=== PATIENT | female | born 1985 | race Caucasian/White ===

== ENCOUNTER 2017-03-23 18:50 | Emergency (ER) | payer SELFPAY ==
[2017-03-23 19:44] LABS: HEMOGLOBIN 14.4 gm/dl (12.3-15.3); RED BLOOD COUNT 4.52 M/UL (4.00-5.10); WHITE BLOOD COUNT 7.1 K/UL (4.5-11.0)
[2017-03-23 20:06] LABS: BUN/CREATININE RATIO 13 (0-10)
== END 2017-03-23 21:45 | disposition home or self-care (01) ==
LOC: ER1 18:50
PROVIDERS: Family Medicine
DX: G40.409 Other generalized epilepsy and epileptic syndromes, not intractable, without status epilepticus (principal); F17.210 Nicotine dependence, cigarettes, uncomplicated
CPT/HCPCS: 36415; 80053; 85025; 96365; 96366; 99285; J1165

== ENCOUNTER 2020-12-15 00:10 | Emergency (ER) | payer BC ==
[~2020-12-15 00:10] MED LIST: KEPPRA500 MG PO; MACROBID 100 M100 MG PO; PYRIDIUM200 MG PO
[2020-12-15 01:22] LABS: HEMOGLOBIN 14.2 gm/dl (12.3-15.3); RED BLOOD COUNT 4.4 M/UL (4.00-5.10); WHITE BLOOD COUNT 10.5 K/UL (4.5-11.0)
[2020-12-15 01:39] LABS: BUN/CREATININE RATIO 9 (0-10)
[2020-12-15] MEDS ORDERED: ZOFRAN4 MG PO ×2 (02:24→02:39)
[2020-12-15] MEDS ORDERED: PROTONIX40 MG PO (02:25)
[2020-12-15] MEDS ORDERED: HYDROCODON-ACE1 EAC4 PO (02:48)
[2020-12-22] MEDS ORDERED: HYDROCODON-ACE1 EAC4 PO (10:16)
== END 2020-12-15 04:00 | disposition home or self-care (01) ==
LOC: ER1 00:10
PROVIDERS: Physician Assistant
DX: K80.20 Calculus of gallbladder without cholecystitis without obstruction (principal); E87.6 Hypokalemia; R19.7 Diarrhea, unspecified; F17.210 Nicotine dependence, cigarettes, uncomplicated
CPT/HCPCS: 36415; 80053; 81001; 83690; 84703; 85025; 87086; 93005; 96374; 96375; 99284; J1885; J2405; Q9967

== ENCOUNTER → 2020-12-22 | Day surgery (SDC) | payer SELFPAY ==
[~2020-12-22] MED LIST changes: +BENTYL 20MG TAB20 MG PO; +HYDROCODON-ACE1 EAC4 PO; +PROTONIX40 MG PO; +ZOFRAN ODT 4 MG4 MG PO; +ZOFRAN4 MG PO
== END | disposition home or self-care (01) ==
LOC: OR 06:50
DX: K80.10 Calculus of gallbladder with chronic cholecystitis without obstruction (principal); F17.200 Nicotine dependence, unspecified, uncomplicated; Z79.899 Other long term (current) drug therapy
CPT/HCPCS: J0690; J1100; J1170; J2250; J2405; J2704; J2710; J3010; J7030; J7120

== ENCOUNTER 2021-04-20 20:37 | Emergency (ER) | payer SELFPAY ==
[~2021-04-20 20:37] MED LIST changes: -BENTYL 20MG TAB20 MG PO; -ZOFRAN ODT 4 MG4 MG PO
[2021-04-20 21:40] LABS: BUN/CREATININE RATIO 12 (0-10)
[2021-04-20 23:10] LABS: HEMOGLOBIN 13.8 gm/dl (12.3-15.3); RED BLOOD COUNT 4.26 M/UL (4.00-5.10); WHITE BLOOD COUNT 7.8 K/UL (4.5-11.0)
[2021-04-20] MEDS ORDERED: BENTYL 20MG TAB20 MG PO (23:40)
[2021-04-20] MEDS ORDERED: ZOFRAN ODT 4 MG4 MG PO (23:40)
== END 2021-04-20 23:54 | disposition home or self-care (01) ==
LOC: ER1 20:37
PROVIDERS: Pain Medicine Interventional Pain Medicine
DX: R10.13 Epigastric pain (principal); R11.2 Nausea with vomiting, unspecified; G40.909 Epilepsy, unspecified, not intractable, without status epilepticus; F17.200 Nicotine dependence, unspecified, uncomplicated; Z90.49 Acquired absence of other specified parts of digestive tract
CPT/HCPCS: 80053; 81001; 83690; 84703; 85025; 99284

== ENCOUNTER 2021-06-16 00:15 | Emergency (ER) | payer OTHER ==
[~2021-06-16 00:15] MED LIST changes: +BENTYL 20MG TAB20 MG PO; +ZOFRAN ODT 4 MG4 MG PO
[2021-06-16] MEDS ORDERED: ZOFRAN ODT 4 MG4 MG PO (02:56)
[2021-06-16] MEDS ORDERED: LODINE CAP 300300 MG PO (02:56)
[2021-06-16] MEDS ORDERED: VENTOLIN HFA 66.7 GM INH (02:56)
== END 2021-06-16 03:00 | disposition home or self-care (01) ==
LOC: ER1 00:15
DX: J02.9 Acute pharyngitis, unspecified (principal); F17.210 Nicotine dependence, cigarettes, uncomplicated; Z20.822 Contact with and (suspected) exposure to COVID-19; Z90.49 Acquired absence of other specified parts of digestive tract; G40.909 Epilepsy, unspecified, not intractable, without status epilepticus
CPT/HCPCS: 71045; 87081; 87880; 99284; U0002

== ENCOUNTER 2021-07-04 05:13 | Inpatient (IN) | payer OTHER ==
[~2021-07-04] VITALS: Ht 170.2 cm; Wt 72.1 kg
[~2021-07-04 05:13] MED LIST changes: +LODINE CAP 300300 MG PO; +VENTOLIN HFA 66.7 GM INH
[2021-07-04 06:08] LABS: HEMOGLOBIN 13.9 gm/dl (12.3-15.3); RED BLOOD COUNT 4.2 M/UL (4.00-5.10); WHITE BLOOD COUNT 7.2 K/UL (4.5-11.0)
[2021-07-04 06:19] LABS: BUN/CREATININE RATIO 11 (0-10)
[2021-07-04] MEDS ORDERED: IBU800 MG PO (15:58)
[2021-07-04] MEDS ORDERED: TYLENOL EXTRA500 MG PO (15:59)
[2021-07-05 04:18] LABS: HEMOGLOBIN 12.7 gm/dl (12.3-15.3); RED BLOOD COUNT 3.94 M/UL (4.00-5.10); WHITE BLOOD COUNT 6.6 K/UL (4.5-11.0)
[2021-07-05 04:49] LABS: BUN/CREATININE RATIO 17 (0-10)
[2021-07-06 06:44] LABS: HEMOGLOBIN 12.8 gm/dl (12.3-15.3); RED BLOOD COUNT 3.91 M/UL (4.00-5.10)
[2021-07-06 07:10] LABS: BUN/CREATININE RATIO 13 (0-10)
[2021-07-07 05:35] LABS: WHITE BLOOD COUNT 5.8 K/UL (4.5-11.0)
[2021-07-07 05:58] LABS: BUN/CREATININE RATIO 14 (0-10)
[2021-07-07] MEDS ORDERED: NICOTINE GUM2 MG PO (16:19)
[2021-07-07] MEDS ORDERED: PROTONIX 40 MG40 M1 PO (16:19)
== END 2021-07-07 17:43 | disposition home or self-care (01) | DRG 438 ==
LOC: ER1 05:13 → CDU 14:46 → M/S 14:46 → CDU 14:46 → M/S 07-05 14:11
PROVIDERS: Internal Medicine Infectious Disease; Physician Assistant; Physician Assistant Medical; ADMIT Internal Medicine
PROC: 8E0ZXY6 Isolation (ICD-10-PCS; principal; 2021-07-04)
DX: K85.90 Acute pancreatitis without necrosis or infection, unspecified (principal); U07.1 COVID-19; G40.909 Epilepsy, unspecified, not intractable, without status epilepticus; R74.01 Elevation of levels of liver transaminase levels; F17.210 Nicotine dependence, cigarettes, uncomplicated; E78.5 Hyperlipidemia, unspecified; K76.0 Fatty (change of) liver, not elsewhere classified; Z90.49 Acquired absence of other specified parts of digestive tract; Z98.890 Other specified postprocedural states; Z98.51 Tubal ligation status; Z80.1 Family history of malignant neoplasm of trachea, bronchus and lung; Z82.49 Family history of ischemic heart disease and other diseases of the circulatory system
CPT/HCPCS: 36415; 71045; 74018; 74181; 76700; 80053; 80061; 81001; 82150; 83690; 84702; 85007; 85025; 85027; 96374; 96375; 99285; C9113; G0378; G0480; J2270; J2405; J7030; J7120; Q9967; U0002